=== PATIENT | female | born 1980 | race Caucasian/White ===

== ENCOUNTER → 2018-10-29 | Outpatient (CLI) | payer OTHER, SELFPAY ==
[2018-11-04 16:09] LABS: HPV Reflexed? NOT INDICATED
== END | disposition home or self-care (01) ==
LOC: LABSPEC 14:48
PROVIDERS: Visit Provider Obstetrics & Gynecology
DX: Z12.4 Encounter for screening for malignant neoplasm of cervix (principal)
CPT/HCPCS: 36415; 88175; G0145

== ENCOUNTER 2021-06-04 14:05 | Outpatient (CLI) | payer OTHER, SELFPAY ==
[2021-06-06 17:02] LABS: HPV APTIMA, High Risk Negative (Negative)
== END 2021-06-04 23:59 | disposition home or self-care (01) ==
LOC: LABSPEC 14:06
PROVIDERS: Visit Provider Student in an Organized Health Care Education/Training Program
DX: Z12.4 Encounter for screening for malignant neoplasm of cervix (principal)
CPT/HCPCS: 87624; 88175; G0145

== ENCOUNTER 2021-06-19 17:00 | Outpatient (CLI) | payer OTHER, SELFPAY ==
--- NOTE | 2021-06-19 16:41 | BI_ITS ---
MAMMOGRAPHY - BILATERAL SCREENING REASON FOR EXAM: Female, 40 years old. Routine annual screening examination. PERTINENT HISTORY: Non-contributory. TECHNIQUE: Digital bilateral breast rashi (3D mammographic acquisition) in the CC and MLO projections. 2-D mediolateral oblique (MLO) and craniocaudad (CC) views of both breasts were obtained. CAD: Full Field Digital Mammography with Computer Added Detection was performed. COMPARISON: None. Baseline examination. FINDINGS: Breast Composition: The breasts are extremely dense, which lowers the sensitivity of mammography. There are no dominant masses or suspicious calcifications. No other significant abnormalities are identified. BI/SCRN MAMM (CAD)W/RASHI BILAT IMPRESSION: Negative screening mammogram. Yearly followup mammogram recommended. (A) ASSESSMENT CATEGORY: BIRADS Category 1: Negative. A letter regarding these results will be sent to the patient by the facility within 30 days. Approximately 10% of breast cancers are not detected by mammography. A normal mammogram should not delay biopsy of a clinically suspicious abnormality. [id number] Electronically Signed: Vivek Morales MD at 8:35 EST ,
== END 2021-06-19 23:59 | disposition home or self-care (01) ==
LOC: OPBI 06-20 07:35
PROVIDERS: Visit Provider Student in an Organized Health Care Education/Training Program
DX: Z12.31 Encounter for screening mammogram for malignant neoplasm of breast (principal)
CPT/HCPCS: 77063; 77067

== ENCOUNTER 2021-07-19 08:51 | Day surgery (SDC) | payer OTHER, SELFPAY ==
[2021-07-13 17:02] LABS: Hematocrit 36.9 % (37-47); Mean Corp Hgb Conc 32.5 g/dL (32-36); Mean Corpuscular Hgb 28.7 pg (27.0-32.0); Mean Corpuscular Volume 88.3 fL (81-99); Mean Platelet Vol. 10.7 fl (6.2-12.0); Platelet Count 250 K/mm3 (150-450); RBC Distribution Width CV 12.6 % (11.6-14.6); RBC Distribution Width SD 40.8 fl (35.1-43.9); Red Blood Count 4.18 M/mm3 (4.2-5.4); White Blood Count 7.6 K/mm3 (4.4-11.0)
[2021-07-19] VITALS (8 sets, daily range): BP systolic 105–112; BP diastolic 74–96; PULSE 52–85; RESP 16–18; TEMP 36.2–37; O2SAT 99–100; BMI 20.9
--- NOTE | 2021-07-19 | UTC_PTH ---
PATIENT: STEVE ARIAS LOC: [facility] [place][id number] AGE/SX: 40/F ROOM: RE07/19/[address]: Dr. Liv Arellano, : 1980 BED: DIS: 07/19/2021 SPEC #: [id number] RECD: 07/19/21 13:34 STATUS: ANT IRBY #: [id number] YENI: 07/19/21 00:[address]: Liv Arellano DEPT: SURGICAL PATHOLOGY RECD BY: Kin Lombardi Tissues: Uterine cervix, NOS Procedures: Surgery Specimen Level IV HEADER OPERATION: Hysteroscopy, D & C Annabella PRE-OP DIAGNOSIS: Abnormal uterine bleeding and menorrhagia TISSUE SUBMITTED: Uterine curettings MICROSCOPIC DIAGNOSIS Endometrium, curettings: Weakly proliferative endometrium with mild disorder. Rare strips of benign superficial endocervix. AM:yari 07/23/2021 MICROSCOPIC DESCRIPTION Slides are reviewed. GROSS DESCRIPTION Received in fixative is one container labeled with the patient's name and designated uterine curettings. The specimen consists of multiple fragments of hemorrhagic mucoid tissue that in aggregate measure 3 x 2.5 x 0.2 cm. The specimen is totally submitted in one cassette. / SJ:yari 07/20/2021 TC:5 CPT: 96483
--- NOTE | 2021-07-19 07:43 | PCM.HP.BLA ---
History and Physical Date of Admission: 07/19/21 HISTORY OF PRESENT ILLNESS: On 07/13/2021, Quiana Camp, a 40 year old female 1 0 1 0 1, presented for: Hysteroscopy, dilation and curettage, endometrial ablation for abnormal uterine bleeding and menorrhagia. MEDICAL HISTORY: Denies ALLERGIES: NKDA MEDICATIONS HISTORY: 1. Multi For Her 18 mg iron-600 mcg-80 mcg tablet, daily SURGICAL HISTORY: 1. T and A, at age 4 2. Lasik eye surgery 3. 06/28/2010 Queta Fernandez MD Non reassuring FHT 4. Nodules removed from throat, 03/26 MENSTRUAL HISTORY: LMP Known?- DefiniteAmount/Duration - 5-6 DAYS, Regularity - Regular, Frequency - 28 days, LMP - 07/12/21, Age Onset Menarche - 15 PAST PREGNANCIES: Total Pregnancies - 2; Full Term Pregnancies - 1; Premature - 0; Abortions, Induced - 0; Abortions, Spontaneous - 1; Ectopics - 0; Multiple Births - 0; Living Children - 1 FAMILY HISTORY Noncontributory SOCIAL HISTORY: Alcohol Use - socially Smoking - denies smoking Drug Use - Denies REVIEW OF SYSTEMS: GENERAL - Denies fever, or chills SKIN - Denies skin changes EYES - Denies visual changes EARS - Denies difficulty hearing NOSE - Denies nasal congestion or bleeding MOUTH - Denies sore throat or difficulty swallowing NECK - Denies pain or swelling RESPIRATORY - Denies shortness of breath or wheezing CARDIOVASCULAR - Denies palpitations or chest pain GASTROINTESTINAL - Denies nausea, vomiting, diarrhea, constipation GENITOURINARY - Denies dysuria, frequency of urination, incontinence of urine MUSCULOSKELETAL - Denies joint or muscle pain NEUROLOGICAL - Denies localized numbness or weakness PSYCHIATRIC - Denies depression or anxiety ENDOCRINE - Denies heat or cold intolerance, weight loss or gain HEMATO-IMMUNOLOGIC - Denies excessive bleeding with cuts PHYSICAL EXAMINATION BP- 110/78 Sitting, Right arm, regular cuff Weight- 134.0 lbs Height- 66.0 inch BMI:21.63 CONSTITUTIONAL - NAD, well nourished, and well developed SKIN - No rash, lesions, or ulcers HEENT - Normocephalic, PERRLA, EOMI LUNGS - CTA x2 without wheezes, crackles or rales CARDIAC - Regular rate and rhythm without rubs, murmurs, or gallops ABDOMEN - Without hepatosplenomegaly, distention, masses, rebound, or guarding; normal bowel sounds; no hernias NEUROLOGICAL - Cranial nerves II-XII grossly intact PSYCHIATRIC - A and O to time, place, person, mood and affect ASSESSMENT/PLAN: 1. Excessive Bleeding In The Premenopausal Period, Menorrhagia, abnormal uterine bleeding Menorrhagia. Heavy menses. Soaking through pads and tampon every 1 hour. Hysteroscopy, dilation and curettage, endometrial ablation. R/B/A discussed. Risks include, but are not limited to: risk of bleeding to the point of transfusion, infection, injury to surrounding tissue (bowel/bladder/uterine perforation), VTE, ICU admission. Pt aware and consented., Plan for hysteroscopy, dilation and curettage and endometrial ablation
[2021-07-19 09:35] LABS: Internal QC Validated? YES +Cl - CLEAR BKGD; Pregnancy, Urine Negative Negative
--- NOTE | 2021-07-19 11:39 | PCM.OPRPT ---
Report of Operation Date of Procedure: 07/19/21 Pre-Operative Diagnosis: Menorrhagia, abnormal uterine bleeding Post-Operative Diagnosis: Menorrhagia, abnormal uterine bleeding Surgery/Procedure Performed:: Hysteroscopy, dilation and curettage, endometrial ablation Description of Surgical Findings:: Normal-appearing external genitalia. Fluffy endometrial lining. No evidence of polyps or fibroids. Type of Anesthesia: MAC Specimen's removed: Endometrial curettings Estimated Blood Loss (mL): 5 cc Fluids Replaced: 800 cc Description of Procedure: Indication/risk/benefits: 40-year-old with menorrhagia plan for hysteroscopy, dilation curettage, endometrial ablation for abnormal uterine bleeding and menorrhagia. All risk, benefits, alternatives discussed with patient. Risk include but not limited to: Risk of bleeding to the point transfusion, infection, injury to surrounding tissue including bowel/bladder/uterine perforation, VTE, ICU admission. Patient aware and consented. Procedure: Patient taken to the operating room and MAC anesthesia induced. Patient placed in the dorsal lithotomy position prepped and draped in usual sterile fashion. Weighted speculum placed in posterior vagina and Mayen retractor used to visualize the cervix. Anterior lip of the cervix grasped with Allis clamp. Cervix sequentially dilated. Hysteroscope placed through cervical canal noting above findings. Cervical length measured. Uterus sounded. Uterine length 8 cm, cavity length 4 cm. Annabella device open. Annabella device placed through the cervical canal and deployed. Ablation completed. Annabella removed. Allis clamp removed. Cervix hemostatic. Weighted speculum removed. At the end of the procedure all needle, lap, sponge counts correct x2. Urine output: None measured Complications None
--- NOTE | 2021-07-19 12:12 | PCM.DC ---
Discharge Instructions Diet Discharge Diet: No restrictions Activity Discharge Activity: Return to Normal Activity and May Shower May resume sexual activity in: 2 weeks Weight Bearing Status: Weight bearing as tolerated Lifting Restrictions: None Dressing / Incision Call your doctor if you observe: Fever of 101 or Higher, Change in Color, Inability to urinate, Using more than 1 pad per hour, Shortness of breath, Dizziness, Swelling in the ankles, Chest pain and Calf discomfort Follow Up Care Please Follow Up With: Liv Arellano DO When: 1-2 week post operative visit Test Results: Test results from this visit will be discussed in further detail at your follow-up appointment, if applicable. Discharge Plan Admission Primary Reason for Your Visit: Endometrial Ablation Attending Provider: Liv Arellano Discharge Orders/Prescriptions Prescriptions: No Action multivitamin Tablet 1 tab PO DAILY RF: 0 biotin 5 mg Tablet 1 mg PO DAILY RF: 0 Referrals / Follow Up: [facility] [Other] Disposition Disposition (needs filled in before D/C Order can be placed): Home, Self Care
== END 2021-07-19 23:59 | disposition home or self-care (01) ==
LOC: SDC 08:56 → AC 08:57
PROVIDERS: Anesthesiology; Referring Provider Student in an Organized Health Care Education/Training Program; Visit Provider Student in an Organized Health Care Education/Training Program
PROC: 0U5B8ZZ Destruction of Endometrium, Via Natural or Artificial Opening Endoscopic (ICD-10-PCS; CPT 58558; principal; 2021-07-19 10:10)
DX: N92.4 Excessive bleeding in the premenopausal period (principal); N92.0 Excessive and frequent menstruation with regular cycle; N93.9 Abnormal uterine and vaginal bleeding, unspecified
CPT/HCPCS: 58558; 00952; 36415; 81025; 85027; 86850; 86900; 86901; 88305; J7120; J2405

== ENCOUNTER → 2022-10-11 | Outpatient (CLI) | payer OTHER, SELFPAY ==
--- NOTE | 2022-10-11 08:48 | US_ITS ---
STUDY: ULTRASOUND BREAST - LEFT REASON FOR EXAM: Female, 42 years old. Abnormal screening mammogram. TECHNIQUE: Axial and longitudinal images of the LEFT breast were performed with a high resolution ultrasound transducer. # OF IMAGES: 50 COMPARISON: Comparison is made with prior mammogram done earlier in the day. FINDINGS: LEFT Breast: Dense fibroglandular tissue. No cystic or solid mass is seen. There is evidence of dilated subareolar ducts. US/Breast Complete Unilateral IMPRESSION: Dilated subareolar ducts. ASSESSMENT CATEGORY: BIRADS Category 2: Benign. A letter regarding these results will be sent to the patient by the facility within 30 days. Electronically Signed: Vivek Morales MD at 10:17 EDT ,
--- NOTE | 2022-10-11 08:48 | BI_ITS ---
MAMMOGRAPHY - BILATERAL DIAGNOSTIC REASON FOR EXAM: Female, 42 years old. Left nipple discharge. PERTINENT HISTORY: Non-contributory. TECHNIQUE: Digital bilateral breast sara (3D mammographic acquisition) in the CC and MLO projections. 2-D mediolateral oblique (MLO) and craniocaudad (CC) views of both breasts were obtained. CAD: Full Field Digital Mammography with Computer Added Detection was performed. COMPARISON: Comparison is made with prior study dated June 19, 2021. FINDINGS: Breast Composition: The breasts are extremely dense, which lowers the sensitivity of mammography. There are no dominant masses or suspicious calcifications. No other significant abnormalities are identified. There has been no significant change since the prior study. BI/DIAG MAMM W/CAD, BILAT IMPRESSION: Stable bilateral diagnostic mammogram. With the patient''s history of left nipple discharge, correlation with ultrasound is recommended. ASSESSMENT CATEGORY: BIRADS Category 0: Incomplete. Need additional imaging evaluation. A letter regarding these results will be sent to the patient by the facility within 30 days. Approximately 10% of breast cancers are not detected by mammography. A normal mammogram should not delay biopsy of a clinically suspicious abnormality. Electronically Signed: Vviek Morales MD at 10:06 EDT ,
== END | disposition home or self-care (01) ==
PROVIDERS: Referring Provider Student in an Organized Health Care Education/Training Program; Visit Provider Student in an Organized Health Care Education/Training Program
DX: N63.20 Unspecified lump in the left breast, unspecified quadrant (principal)
CPT/HCPCS: 76641; 77062; 77066; G0279